=== PATIENT | female | born 1995 | race Caucasian/White ===

== ENCOUNTER 2018-03-24 12:45 | Emergency (ER) | payer OTHER ==
--- NOTE | 2018-03-24 13:08 | ER Document Report ---
ED Medical Screen (RME) - General Chief Complaint: Constipation Stated Complaint: BAD CONSTIPATION Time Seen by Provider: 03/24/18 13:05 Notes: Patient is a 22-year-old female, no past medical history, presents with 5 days of inability to have a bowel movement. She saw Dr. Reddy, GI doctor at [facility] earlier today and possibly had an impaction on KUB. She is scheduled for a colonoscopy in 2 weeks. She has tried 2 enemas, magnesium citrate and Colace. Patient vomited the magnesium citrate earlier today. PE: Tachycardia, mild LLQ tenderness, normal bowel sounds I have greeted and performed a rapid initial assessment of this patient. A comprehensive ED assessment and evaluation of the patient, analysis of test results and completion of the medical decision making process will be conducted by additional ED providers. TRAVEL OUTSIDE OF THE [place] IN LAST 30 DAYS: No - Related Data Allergies/Adverse Reactions: latex Allergy (Verified 03/24/18 13:05) Past Medical History - Social History Chew tobacco use (# tins/day): No Frequency of alcohol use: None Drug Abuse: None Renal/ Medical History: Denies: Hx Peritoneal Dialysis Past Surgical History: Reports: Hx Oral Surgery Physical Exam - Vital signs Vitals: Temp Pulse Resp BP Pulse Ox 98.4 F 108 H 18 124/82 98 03/24/18 12:53 03/24/18 12:53 03/24/18 12:53 03/24/18 12:53 03/24/18 12:53 Course - Vital Signs Vital signs: Temp Pulse Resp BP Pulse Ox 98.4 F 108 H 18 124/82 98 03/24/18 12:53 03/24/18 12:53 03/24/18 12:53 03/24/18 12:53 03/24/18 12:53
--- NOTE | 2018-03-24 13:19 | ER Document Report ---
ED GI/ - General Chief Complaint: Constipation Stated Complaint: EXTREEM CONSTIPATION Time Seen by Provider: 03/24/18 13:05 Notes: 22-year-old female to the emergency department chief complaint of constipation. Patient states that she has had a bowel movement in 5 days. Was seen by national sales consultant a few days ago. Had evaluation and rectal exam and x-ray performed. Scheduled for colonoscopy on April 14. Patient is concerned because her mother had colon cancer that was diagnosed in her 30s and had some alcohol that had GI related complications. Patient states that she is having nausea as well as vomiting. No abdominal pain other than occasional cramping. No rectal bleeding. States that she is taken mag citrate as well as MiraLAX and it only makes her want to throw up. Has done 2 enemas at home. TRAVEL OUTSIDE OF THE [place] IN LAST 30 DAYS: No - HPI Patient complains to provider of: Other - Constipation Onset: Last week Timing/Duration: Gradual - Related Data Allergies/Adverse Reactions: latex Allergy (Verified 03/24/18 13:05) Past Medical History - General Information source: Patient - Social History Smoking Status: Current Every Day Smoker Cigarette use (# per day): Yes Chew tobacco use (# tins/day): No Frequency of alcohol use: None Drug Abuse: None Lives with: Family Family History: Reviewed & Not Pertinent Patient has suicidal ideation: No Patient has homicidal ideation: No - Past Medical History Cardiac Medical History: Reports: None Renal/ Medical History: Denies: Hx Peritoneal Dialysis Past Surgical History: Reports: Hx Oral Surgery Review of Systems - Review of Systems Constitutional: No symptoms reported EENT: No symptoms reported Cardiovascular: No symptoms reported Respiratory: No symptoms reported Gastrointestinal: Nausea, Vomiting, Other - Constipation Genitourinary: No symptoms reported Female Genitourinary: No symptoms reported Musculoskeletal: No symptoms reported Skin: No symptoms reported Hematologic/Lymphatic: No symptoms reported Neurological/Psychological: No symptoms reported Physical Exam - Vital signs Vitals: Temp Pulse Resp BP Pulse Ox 98.4 F 108 H 18 124/82 98 03/24/18 12:53 03/24/18 12:53 03/24/18 12:53 03/24/18 12:53 03/24/18 12:53 Interpretation: Normal - General General appearance: Appears well, Alert - HEENT Head: Normocephalic, Atraumatic Eyes: Normal Pupils: PERRL - Respiratory Respiratory status: No respiratory distress Chest status: Nontender Breath sounds: Normal Chest palpation: Normal - Cardiovascular Rhythm: Regular Heart sounds: Normal auscultation Murmur: No - Abdominal Inspection: Normal Distension: No distension Bowel sounds: Normal Tenderness: Nontender Organomegaly: No organomegaly - Rectal Tenderness: No Hemorrhoids: None Notes: No large stool masses palpated on rectal exam. Dulcolax suppository inserted on rectal exam. - Back Back: Normal, Nontender - Extremities General upper extremity: Normal inspection, Nontender, Normal color, Normal ROM , Normal temperature General lower extremity: Normal inspection, Nontender, Normal color, Normal ROM , Normal temperature, Normal weight bearing. No: Karolyn's sign - Neurological Neuro grossly intact: Yes Cognition: Normal Orientation: AAOx4 Mathieu Coma Scale Eye Opening: Spontaneous Vici Coma Scale Verbal: Oriented Vici Coma Scale Motor: Obeys Commands Vici Coma Scale Total: 15 Speech: Normal Motor strength normal: LUE, RUE, LLE, RLE Sensory: Normal - Psychological Associated symptoms: Normal affect, Normal mood - Skin Skin Temperature: Warm Skin Moisture: Dry Skin Color: Normal Course - Re-evaluation Re-evalutation: 03/24/18 16:19 Labs fairly unremarkable slight elevation in the function studies. Proceeding with CT scan at this time. Results from CT scan pending at time of shift change at 1620. Dr. Gonzalez to follow-up on the results. If negative comfortable discharging and have patient follow-up with her national sales consultant. - Vital Signs Vital signs: Temp Pulse Resp BP Pulse Ox 98.4 F 108 H 18 124/82 98 03/24/18 12:53 03/24/18 12:53 03/24/18 12:53 03/24/18 12:53 03/24/18 12:53 - Laboratory Result Diagrams: 03/24/18 14:09 03/24/18 14:09 Laboratory results interpreted by me: 03/24/18 03/24/18 03/24/18 14:09 14:09 14:09 RBC 5.45 H AST 52 H ALT 80 H Urine Protein 30 H Discharge - Discharge Clinical Impression: Constipation Qualifiers: Constipation type: unspecified constipation type Qualified Code(s): K59.00 - Constipation, unspecified Condition: Good Disposition: HOME, SELF-CARE Instructions: Constipation ([facility]) Prescriptions: Lactulose 20 gm PO DAILY PRN 20 Days #120 ml PRN Reason: constipation Referrals: HÉCOTR ALEJO MD [ACTIVE STAFF] - Follow up as needed
[2018-03-24] MEDS ORDERED: BISACODYL 5 MG TABEC PO ONE (13:33)
[2018-03-24] MEDS ORDERED: BISACODYL 10 MG SUPP.RECT PR ONE (13:33)
[2018-03-24] MEDS ORDERED: LACTULOSE SYRUP 20 GM/30 ML UDCUP PO ONE (13:33)
--- NOTE | 2018-03-24 14:07 | RADIOLOGY REPORT (SQ) ---
EXAM DESCRIPTION: KUB/ABDOMEN (SINGLE VIEW) COMPLETED DATE/TIME: 03/24/2018 1:31 pm REASON FOR STUDY: abdominal pain, no BM for 5 days COMPARISON: None. NUMBER OF VIEWS: One view. TECHNIQUE: Supine radiographic image of the abdomen acquired. LIMITATIONS: None. FINDINGS: BOWEL GAS PATTERN: Normal bowel gas pattern. No dilated loops. CALCIFICATIONS: No suspicious calcifications. SOFT TISSUES: No gross mass or suggestion of organomegaly. HARDWARE: IUD is projected in the lower pelvis. BONES: No acute fracture. No worrisome bone lesions. OTHER: No other significant finding. IMPRESSION: NO RADIOGRAPHIC EVIDENCE FOR ACUTE ABDOMINAL DISEASE. TECHNICAL DOCUMENTATION: JOB ID: [id number] [email or web address]- All Rights Reserved Reading location - IP/workstation name: [email or web address]
[2018-03-24] MEDS ORDERED: ONDANSETRON 4 MG TAB.RAPDIS PO PRN (14:18)
[2018-03-24 14:23] LABS: ABSOLUTE BASOPHILS # (AUTO) 0.1 10^3/uL (0.0-0.2); ABSOLUTE EOSINOPHILS # (AUTO) 0.2 10^3/uL (0.0-0.6); ABSOLUTE LYMPHOCYTES (AUTO) 1.8 10^3/uL (0.5-4.7); ABSOLUTE MONOCYTES (AUTO) 0.8 10^3/uL (0.1-1.4); ABSOLUTE NEUT (AUTO) 7.6 10^3/uL (1.7-8.2); EOSINOPHILS % (AUTO) 1.6 % (0-6); HEMATOCRIT 44.9 % (36.0-47.0); HEMOGLOBIN 15.4 g/dL (12.0-15.5); LYMPHOCYTES % (AUTO) 17.6 % (13-45); MEAN CORPUSCULAR HEMOGLOBIN 28.3 pg (27.0-33.4); MEAN CORPUSCULAR HGB CONC 34.4 g/dL (32.0-36.0); MEAN CORPUSCULAR VOLUME 82 fl (80-97); MONOCYTES % (AUTO) 7.5 % (3-13); PLATELET COUNT 294 10^3/uL (150-450); RED BLOOD COUNT 5.45 10^6/uL (3.72-5.28); RED CELL DISTRIBUTION WIDTH 12.9 % (11.5-14.0); SEGMENTED NEUTROPHILS % (AUTO) 72.3 % (42-78); TOTAL CELLS COUNTED % (AUTO) 100 %; WHITE BLOOD COUNT 10.5 10^3/uL (4.0-10.5)
[2018-03-24 14:30] LABS: APPEARANCE,URINE SLIGHTLY-CLOUDY; BILIRUBIN,URINE NEGATIVE (NEGATIVE); COLOR,URINE YELLOW; GLUCOSE, URINE NEGATIVE (NEGATIVE); KETONES,URINE NEGATIVE (NEGATIVE); LEUKOCYTE ESTERASE,URINE NEGATIVE (NEGATIVE); NITRITE,URINE NEGATIVE (NEGATIVE); PROTEIN,URINE 30 mg/dL (NEGATIVE); UROBILINOGEN,URINE NEGATIVE mg/dL (<2.0)
[2018-03-24 14:48] LABS: ALANINE AMINOTRANSFERASE 80 U/L (9-52); ALBUMIN 4.9 g/dL (3.5-5.0); ALKALINE PHOSPHATASE 67 U/L (38-126); ANION GAP 12 (5-19); ASPARTATE AMINO TRANSFERASE 52 U/L (14-36); BILIRUBIN,DIRECT 0.3 mg/dL (0.0-0.4); BILIRUBIN,TOTAL 0.5 mg/dL (0.2-1.3); BLOOD UREA NITROGEN 11 mg/dL (7-20); CALCIUM 9.7 mg/dL (8.4-10.2); CARBON DIOXIDE 28 mmol/L (22-30); CHLORIDE 105 mmol/L (98-107); GLUCOSE 81 mg/dL (75-110); LIPASE 161.6 U/L (23-300); POTASSIUM 4.6 mmol/L (3.6-5.0); SODIUM 144.8 mmol/L (137-145); TOTAL PROTEIN 8.1 g/dL (6.3-8.2)
--- NOTE | 2018-03-24 16:56 | RADIOLOGY REPORT (SQ) ---
EXAM DESCRIPTION: CT ABD/PELVIS WITH IV ORAL COMPLETED DATE/TIME: 03/24/2018 4:31 pm REASON FOR STUDY: constipation and abd pain/vomiting COMPARISON: None. TECHNIQUE: CT scan of the abdomen and pelvis performed using helical scanning technique with dynamic intravenous contrast injection and oral contrast. Images reviewed with lung, soft tissue, and bone w indows. Reconstructed coronal and sagittal MPR images reviewed. Delayed images for evaluation of the urinary system also acquired. All images stored on PACS. All CT scanners at this facility use dose modulation, iterative reconstruction, and/or weight based d osing when appropriate to reduce radiation dose to as low as reasonably achievable (ALARA). [facility]: Dose Right [facility]: CareDose [facility]: Dose Right [facility]: Teradose 4D [facility]: Impraise CONTRAST TYPE AND DOSE: contrast/concentration: Isovue 370.00 mg/ml; Total Contrast Delivered: 100.0 ml; Total Saline Delivered: 45.0 ml RENAL FUNCTION: None required. The patient is less than 50 years old. RADIATION DOSE: CT Rad equipment meets quality standard of care and radiation dose reduction techniq ues were employed. CTDIvol: 17.7 - 20.4 mGy. DLP: 2219 mGy-cm.. LIMITATIONS: None. FINDINGS: LOWER CHEST: No significant findings. No nodules or infiltrates. LIVER: Normal size. No masses. No dilated ducts. SPLEEN: Normal size. No focal lesions. PANCREAS: No masses. No significant calcifications. No adjacent inflammation or peripancreatic fluid collections. Pancreatic duct not dilated. GALLBLADDER: No identified stones by CT criteria. No inflammatory changes to suggest cholecystitis. ADRENAL GLANDS: No significant masses or asymmetry. RIGHT KIDNEY AND URETER: No solid masses. No significant calcifications. No hydronephrosis or hyd roureter. LEFT KIDNEY AND URETER: No solid masses. No significant calcifications. No hydronephrosis or hydr oureter. AORTA AND VESSELS: No aneurysm. No dissection. Renal arteries, SMA, celiac without stenosis. RETROPERITONEUM: No retroperitoneal adenopathy, hemorrhage or masses. BOWEL AND PERITONEAL CAVITY: No masses or inflammatory changes. No free fluid or peritoneal masses. A PPENDIX: Normal. PELVIS: Complex thick walled ovarian cyst identified on the left measuring 3.4 x 2.7 cm in diameters. No free fluid. Normal bladder. ABDOMINAL WALL: No masses. No hernias. BONES: No significant or acute findings. OTHER: Intrauterine IUD is identified. IMPRESSION: Complex thick walled left ovarian cyst is identified measuring 3.4 x 2.7 cm in diameters . Followup recommendations are as noted below. Intrauterine IUD is identified. Other findings as n oted above. COMMENT: Followup of asymptomatic adnexal cysts found on CT or MRI in reproductive age patients *Benign cyst ?5 cm: No followup needed *Benign cyst >5 cm: US at 6-12 weeks to assess resolution *Probably benign cyst ?3 cm: No followup needed *Probably benign cyst >3 and ?5 cm: US at 6-12 weeks to assess resolution *Probably benign cyst >5 cm: US *Other imaging features, probable diagnostic: manage as appropriate for diagnosis *Other imaging features, not specific: US Note: If cyst is clinically symptomatic or otherwise concerning, other followup may be necessary. Bas ed on Managing Incidental Findings on Abdominal and Pelvic CT and MRI, Part 1: White Paper of the ACR Incidental Findings Committee II on Adnexal Findings J Am Angel Radiol 2013;10:675-681. TECHNICAL DOCUMENTATION: JOB ID: [id number] Quality ID # [id number]: Final reports with documentation of one or more dose reduction techniques (e.g., Au tomated exposure control, adjustment of the mA and/or kV according to patient size, use of iterative reconstruction technique) 2010 [employer]- All Rights Reserved Reading location - IP/workstation name: [email or web address]
[2018-03-24 18:03] VITALS: BP 121/86
== END 2018-03-24 18:04 | disposition home or self-care (01) ==
LOC: ER 12:45
DX: K59.00 Constipation, unspecified (principal); N83.202 Unspecified ovarian cyst, left side; R11.2 Nausea with vomiting, unspecified; F17.210 Nicotine dependence, cigarettes, uncomplicated; Z80.0 Family history of malignant neoplasm of digestive organs; Z91.040 Latex allergy status
CPT/HCPCS: 36415; 74018; 74177; 80053; 81001; 81025; 83690; 85025; 99284